=== PATIENT | female | born 1960 | race Caucasian/White ===

== ENCOUNTER 2017-11-08 07:50 | Outpatient (CLI) | payer BC ==
--- NOTE | 2017-11-08 09:09 | ULT ---
PELVIC ULTRASOUND: Comparison: None. History: Post-menopausal female with pelvic heaviness and occasional spotting. Technique: Multiplanar grayscale and color doppler images were obtained in a transabdominal and trans vaginal pelvic ultrasound. FINDINGS: The uterus is normal in size. No focal uterine masses are seen. A nabothian cyst is seen in the cervi x. There is a region in the cervix measuring 7 mm in greatest dimension with both hypoechoic and hype rechoic regions. This is nonspecific. The endometrial stripe is thickened measuring 18 mm. No free fluid is seen in the pelvis. Neither ovary could be visualized. IMPRESSION: 1. Thickened endometrial stripe. This is nonspecific. Correlate with recent PAP smear. 2. Mixed echogenicity lesion within the cervix is nonspecific. Correlate with recent PAP smear. POS: MYESHA
== END 2017-11-08 07:51 | disposition home or self-care (01) ==
LOC: SCSULT 07:50
PROVIDERS: ATTEND Family Medicine
DX: N93.8 Other specified abnormal uterine and vaginal bleeding (principal); R93.8 Abnormal findings on diagnostic imaging of other specified body structures; N88.9 Noninflammatory disorder of cervix uteri, unspecified
CPT/HCPCS: 76856